=== PATIENT | male | born 1935 | race Hispanic/Latino ===

== ENCOUNTER 2021-06-19 06:00 | Day surgery (SDC) | payer MEDICARE ==
[2021-06-17 12:41] LABS: BASOPHILS % (AUTO) 0.8 % (0.0-5.0); EOSINOPHILS % (AUTO) 4.1 % (0.0-8.0); HEMATOCRIT 33.6 % (42-54); LYMPHOCYTES % (AUTO) 15.4 % (21.0-51.0); MEAN CORPUSCULAR HEMOGLOBIN 23.6 pg (27.0-33.0); MEAN CORPUSCULAR HGB CONC 28.9 g/dL (32.0-36.0); MEAN CORPUSCULAR VOLUME 81.8 fL (79-99); MONOCYTES % (AUTO) 7.7 % (3.0-13.0); PLATELET COUNT (AUTO) 241 K/uL (130-400); RED BLOOD CELL COUNT(AUTO) 4.11 MIL/uL (4.50-6.20); RED CELL DISTRIBUTION WIDTH 16.3 % (11.0-15.5); WHITE BLOOD COUNT (AUTO) 7.2 K/uL (4.8-10.8)
[2021-06-17 12:51] LABS: CREATININE 1.3 mg/dL (0.5-1.5); POTASSIUM 4.6 mmol/L (3.5-5.1)
[~2021-06-19] VITALS: Ht 170.2 cm; Wt 68.9 kg
[~2021-06-19 06:00] MED LIST: AMIO200T68 PO; APIX5TAB PO; ATOR10TA69 PO; BUSP15TA3 PO; CARV25TA PO; EMPA10TA PO; FAMO20TA8 PO; FERR-82 PO; FURO20TA4 PO; GABA300C PO; LINA5TAB PO; LOSA50TA64 PO; NITR0.4T50 SL; ROPI2TAB7 PO; TAMS-1 PO
[2021-06-19 06:03] VITALS: BP 172/71
[2021-06-19] MEDS ORDERED: BUPIVACAINE/PF 0.25% 30ML VIAL IJ ONE (07:06)
[2021-06-19] MEDS ORDERED: LIDOCAINE HCL 1% MDV 50ML VIAL ONE (07:07)
[2021-06-19 07:11] LABS: INR 1.06 (0.85-1.15); PROTHROMBIN TIME 11.5 SEC (9.6-11.6)
[2021-06-19] MEDS ORDERED: CEFAZOLIN SODIUM 1 GM VIAL IVP ONE (08:00)
[2021-06-19] MEDS ORDERED: 0.9%NACL 1000ML 1,000 ML IV SCH (08:00)
== END 2021-06-19 08:45 | disposition home or self-care (01) ==
LOC: DAH 06:00
PROVIDERS: ATTEND Internal Medicine Cardiovascular Disease
DX: Z45.02 Encounter for adjustment and management of automatic implantable cardiac defibrillator (principal); I50.22 Chronic systolic (congestive) heart failure; I48.4 Atypical atrial flutter; I25.5 Ischemic cardiomyopathy; Z79.01 Long term (current) use of anticoagulants; Z53.8 Procedure and treatment not carried out for other reasons; Z79.899 Other long term (current) drug therapy
CPT/HCPCS: 36415 ×2; 80048; 82948; 85025; 85610; 93005; A4215; A4216; A4221; A4222; A4223 ×3; A4606; A4663; J3490; J0690

== ENCOUNTER 2021-08-14 05:45 | Day surgery (SDC) | payer MEDICARE ==
[2021-08-12 09:10] VITALS: BP 141/78
[2021-08-12 09:12] LABS: BASOPHILS % (AUTO) 0.6 % (0.0-5.0); HEMATOCRIT 39.1 % (42-54); LYMPHOCYTES % (AUTO) 18.1 % (21.0-51.0); MEAN CORPUSCULAR HEMOGLOBIN 23.6 pg (27.0-33.0); MEAN CORPUSCULAR HGB CONC 28.9 g/dL (32.0-36.0); MEAN CORPUSCULAR VOLUME 81.6 fL (79-99); MONOCYTES % (AUTO) 8.6 % (3.0-13.0); PLATELET COUNT (AUTO) 145 K/uL (130-400); RED BLOOD CELL COUNT(AUTO) 4.79 MIL/uL (4.50-6.20); WHITE BLOOD COUNT (AUTO) 5.4 K/uL (4.8-10.8)
[2021-08-12 09:26] LABS: INR 1.07 (0.85-1.15); PROTHROMBIN TIME 11.6 SEC (9.6-11.6)
[2021-08-12 09:27] LABS: PARTIAL THROMBOPLASTIN TIME 32.4 SEC (26.3-35.5)
[2021-08-12 09:31] LABS: CREATININE 1.3 mg/dL (0.5-1.5); POTASSIUM 5.2 mmol/L (3.5-5.1)
[2021-08-14] VITALS (8 sets, daily range): BP systolic 113–139; BP diastolic 64–82
[~2021-08-14] VITALS: Ht 162.6 cm; Wt 62.5 kg
[~2021-08-14 05:45] MED LIST changes: +0.9%NACL 1000ML 1,000 ML IV SCH; +MIRT-22 PO; -NITR0.4T50 SL; +ROPI0.5T7 PO; -ROPI2TAB7 PO
[2021-08-14] MEDS ORDERED: CEFAZOLIN SODIUM 1 GM VIAL IVP SCH (06:00)
[2021-08-14] MEDS ORDERED: BUPIVACAINE/PF 0.25% 30ML VIAL IJ ONE (07:03)
[2021-08-14] MEDS ORDERED: LIDOCAINE HCL 1% MDV 50ML VIAL ONE (07:04)
[2021-08-14] MEDS ORDERED: VANCOMYCIN 1G/250ML KIT 0 ML IV ONE (07:04)
[2021-08-14] MEDS ORDERED: MEPERIDINE-PF 25 MG/ML SYG ONE (07:24)
[2021-08-14] MEDS ORDERED: MIDAZOLAM HCL 1 MG/ML 2ML VIAL ONE (07:24)
[2021-08-14] MEDS ORDERED: FENTANYL CITRATE PF 50 MCG/1 ML 2ML VIAL ONE (07:24)
[2021-08-14] MEDS ORDERED: TRAM50TA4 PO (09:22)
[2021-08-14] MEDS ORDERED: ACETAMINOPHEN WITH CODEINE 1 TAB TAB PO PRN (09:30)
== END 2021-08-14 12:13 | disposition home or self-care (01) ==
LOC: DAH 05:45
PROVIDERS: ATTEND Internal Medicine Cardiovascular Disease
DX: Z45.02 Encounter for adjustment and management of automatic implantable cardiac defibrillator (principal); I11.0 Hypertensive heart disease with heart failure; I25.5 Ischemic cardiomyopathy; I50.22 Chronic systolic (congestive) heart failure; I48.4 Atypical atrial flutter; I25.10 Atherosclerotic heart disease of native coronary artery without angina pectoris; E78.5 Hyperlipidemia, unspecified; E11.51 Type 2 diabetes mellitus with diabetic peripheral angiopathy without gangrene; E11.42 Type 2 diabetes mellitus with diabetic polyneuropathy; Z98.890 Other specified postprocedural states; Z90.49 Acquired absence of other specified parts of digestive tract; Z98.41 Cataract extraction status, right eye; Z98.42 Cataract extraction status, left eye; Z89.512 Acquired absence of left leg below knee; Z95.1 Presence of aortocoronary bypass graft; Z89.511 Acquired absence of right leg below knee; Z79.01 Long term (current) use of anticoagulants; Z79.899 Other long term (current) drug therapy
CPT/HCPCS: 33263; 36415; 80048; 82948; 85025; 85610; 85730; 93005; A4215; A4216; A4221; A4222; A4223 ×3; A4606; A4663; C1721; J0690 ×2; J2175; J2250; J3490 ×2; J7030; 33228; 99156; 99157; J3010; J3370

== ENCOUNTER 2021-08-20 02:57 | Observation (INO) | payer MEDICARE ==
[~2021-08-20] VITALS: Ht 165.1 cm; Wt 57.9 kg
[~2021-08-20 02:57] MED LIST changes: -0.9%NACL 1000ML 1,000 ML IV SCH; +TRAM50TA4 PO
[2021-08-20 03:31] LABS: BASOPHILS % (AUTO) 0.7 % (0.0-5.0); EOSINOPHILS % (AUTO) 4.5 % (0.0-8.0); HEMATOCRIT 37.6 % (42-54); LYMPHOCYTES % (AUTO) 19.2 % (21.0-51.0); MEAN CORPUSCULAR HEMOGLOBIN 23.6 pg (27.0-33.0); MEAN CORPUSCULAR HGB CONC 29.8 g/dL (32.0-36.0); MEAN CORPUSCULAR VOLUME 79.3 fL (79-99); MONOCYTES % (AUTO) 12.1 % (3.0-13.0); NEUTROPHILS % (AUTO) 62.8 % (40.0-77.0); PLATELET COUNT (AUTO) 193 K/uL (130-400); RED BLOOD CELL COUNT(AUTO) 4.74 MIL/uL (4.50-6.20); RED CELL DISTRIBUTION WIDTH 14.6 % (11.0-15.5); WHITE BLOOD COUNT (AUTO) 5.7 K/uL (4.8-10.8)
[2021-08-20 03:39] LABS: CREATININE 1.4 mg/dL (0.5-1.5); POTASSIUM 3.8 mmol/L (3.5-5.1)
[2021-08-20 03:43] LABS: ALBUMIN 3.2 g/dL (3.5-5.0); BILIRUBIN,TOTAL 0.4 mg/dL (0.2-1.0); MAGNESIUM 2.1 mg/dL (1.80-2.40); TOTAL PROTEIN, SERUM 7.6 g/dL (6.0-8.3)
[2021-08-20 03:53] LABS: B-TYPE NATRIURETIC PEPTIDE 135 pg/mL (0-100)
[2021-08-20 04:08] LABS: APPEARANCE,URINE Clear (CLEAR); BILIRUBIN,URINE Negative (NEGATIVE); COLOR,URINE Yellow (YELLOW); GLUCOSE, URINE (UA) >=1000 mg/dL (NEGATIVE); KETONES,URINE Negative (NEGATIVE); LEUKOCYTE ESTERASE ,URINE Trace (NEGATIVE); NITRATE,URINE Negative (NEGATIVE); OCCULT BLOOD,URINE Negative (NEGATIVE); PROTEIN,URINE Negative (NEGATIVE); UROBILINOGEN,URINE 0.2 mg/dL (0.2-1.0)
[2021-08-20 04:31] LABS: BACTERIA,URINE Moderate /HPF (None Seen); RBC,URINE 0-1 /HPF (0-1); SQUAMOUS EPITHELIAL CELL,UR 0-2 /HPF (0-2)
[2021-08-20] MEDS ORDERED: IOHEXOL-350 75 ML VIAL IV ONE (06:13)
[2021-08-20] MEDS ORDERED: ACETAMINOPHEN 325 MG TAB PO PRN ×3 (07:30→14:00)
[2021-08-20] MEDS ORDERED: ONDANSETRON 4MG INJ IVP PRN (07:30)
[2021-08-20 08:50] VITALS: BP 164/101
[2021-08-20] MEDS ORDERED: NITR0.4T SL (09:18)
[2021-08-20 12:01] VITALS: BP 153/100
[2021-08-20] MEDS ORDERED: GABA300S PO (13:28)
[2021-08-20] MEDS ORDERED: ALBUTEROL 0.083% 2.5 MG/3 ML INH IH PRN (14:00)
[2021-08-20] MEDS ORDERED: KCL 20 MEQ ERTAB PO PRN (14:00)
[2021-08-20] MEDS ORDERED: POTASSIUM CHLORIDE 20MEQ/100ML 100 ML IV PRN ×2 (14:00)
[2021-08-20] MEDS ORDERED: ONDANSETRON 4MG INJ IV PRN (14:00)
[2021-08-20] MEDS ORDERED: GLUCAGON 1MG KIT 1 MG ML IM PRN (14:00)
[2021-08-20] MEDS ORDERED: NITROGLYCERIN 0.4 MG SL TAB SL PRN (14:00)
[2021-08-20] MEDS ORDERED: DiphenhydrAMINE HCL 50 MG/ML VIAL IV PRN (14:00)
[2021-08-20] MEDS ORDERED: LIDOCAINE HCL-MPF 1% 2ML VIAL IV PRN ×2 (14:00)
[2021-08-20] MEDS ORDERED: POTASSIUM CHLORIDE 10% ELIXIR 20 MEQ/15 ML UDCUP PO PRN (14:00)
[2021-08-20] MEDS ORDERED: DIPHENHYDRAMINE HCL 25 MG CAPSULE PO PRN (14:00)
[2021-08-20] MEDS ORDERED: LACTULOSE 20 GM/30 ML UDCUP PO PRN (14:00)
[2021-08-20] MEDS ORDERED: DEXTROSE 50%-WATER 50 ML DISP.SYRIN IV PRN (14:00)
[2021-08-20] MEDS ORDERED: MAG/ALUM/SIMETH 30 ML UDCUP PO PRN (14:00)
[2021-08-20 16:00] VITALS: BP 115/83
[2021-08-20] MEDS: INSULIN HUMULIN R 100 UNIT/ML 3ML SQ SCH ×2 (16:30→21:00)
[2021-08-20 20:00] VITALS: BP 118/77
[2021-08-20] MEDS ORDERED: GABAPENTIN 300 MG CAPSULE PO SCH (21:00)
[2021-08-20] MEDS ORDERED: TAMSULOSIN HCL 0.4 MG CAP.ER.24H PO SCH (21:00)
[2021-08-20] MEDS ORDERED: MIRTAZAPINE 15 MG TABLET PO SCH (21:00)
[2021-08-20] MEDS: BUSPIRONE HCL 5 MG TABLET PO SCH (21:38)
[2021-08-20] MEDS: FAMOTIDINE 20MG TAB PO SCH (21:38)
[2021-08-20] MEDS: CARVEDILOL 25 MG TABLET PO SCH (21:39)
[2021-08-20] MEDS: APIXABAN 5 MG TABLET PO SCH (21:39)
[2021-08-20 23:58] VITALS: BP 113/67
[2021-08-21 04:00] VITALS: BP 103/66
[2021-08-21] MEDS: INSULIN HUMULIN R 100 UNIT/ML 3ML SQ SCH ×2 (05:47→11:30)
[2021-08-21 08:08] VITALS: BP 136/85
[2021-08-21] MEDS ORDERED: **HM**JARDIANCE 10MG PO SCH (09:00)
[2021-08-21] MEDS ORDERED: ATORVASTATIN 10 MG TABLET PO SCH (09:00)
[2021-08-21] MEDS ORDERED: AMIODARONE 200 MG TABLET PO SCH (09:00)
[2021-08-21] MEDS ORDERED: FUROSEMIDE 20 MG TABLET PO SCH (09:00)
[2021-08-21] MEDS ORDERED: ENOXAPARIN SODIUM 30 MG/0.3 ML SQ SCH (09:00)
[2021-08-21] MEDS ORDERED: FERROUS SULFATE 325 MG TABLET.DR PO SCH (09:00)
[2021-08-21] MEDS ORDERED: LOSARTAN 50 MG TABLET PO SCH (09:00)
[2021-08-21] MEDS ORDERED: LINAGLIPTIN 5 MG TABLET PO SCH (09:00)
[2021-08-21] MEDS: CARVEDILOL 25 MG TABLET PO SCH (09:30)
[2021-08-21] MEDS: BUSPIRONE HCL 5 MG TABLET PO SCH (09:31)
[2021-08-21] MEDS: APIXABAN 5 MG TABLET PO SCH (09:31)
[2021-08-21] MEDS: FAMOTIDINE 20MG TAB PO SCH (09:32)
[2021-08-21 11:40] VITALS: BP 116/81
== END 2021-08-21 15:40 | disposition home or self-care (01) ==
LOC: EDH 02:57 → INTOOBSV 07:24 → EDHIP 07:24 → 3AH 08:46
PROVIDERS: ADMIT Internal Medicine; ATTEND Internal Medicine
DX: R06.02 Shortness of breath (principal); R06.01 Orthopnea; E78.2 Mixed hyperlipidemia; I25.10 Atherosclerotic heart disease of native coronary artery without angina pectoris; I70.1 Atherosclerosis of renal artery; I13.0 Hypertensive heart and chronic kidney disease with heart failure and stage 1 through stage 4 chronic kidney disease, or unspecified chronic kidney disease; E11.22 Type 2 diabetes mellitus with diabetic chronic kidney disease; I50.32 Chronic diastolic (congestive) heart failure; N18.30 Chronic kidney disease, stage 3 unspecified; G10 Huntington's disease; E11.42 Type 2 diabetes mellitus with diabetic polyneuropathy; E11.51 Type 2 diabetes mellitus with diabetic peripheral angiopathy without gangrene; I48.19 Other persistent atrial fibrillation; I25.5 Ischemic cardiomyopathy; I08.1 Rheumatic disorders of both mitral and tricuspid valves; E78.5 Hyperlipidemia, unspecified; E78.00 Pure hypercholesterolemia, unspecified; D68.69 Other thrombophilia; I48.92 Unspecified atrial flutter; Z79.01 Long term (current) use of anticoagulants; Z79.84 Long term (current) use of oral hypoglycemic drugs; Z79.899 Other long term (current) drug therapy; Z87.891 Personal history of nicotine dependence; Z89.511 Acquired absence of right leg below knee; Z89.512 Acquired absence of left leg below knee; Z90.49 Acquired absence of other specified parts of digestive tract; Z95.1 Presence of aortocoronary bypass graft; Z95.810 Presence of automatic (implantable) cardiac defibrillator; Z98.42 Cataract extraction status, left eye
CPT/HCPCS: 36415; 71045; 71270; 80053; 81001; 82550 ×4; 82948 ×5; 83735; 83874 ×3; 83880; 84484 ×4; 85025; 85378; 87077; 87088; 87186; 93005; 93306; 93356; 99285; G0378 ×6; Q9967

== ENCOUNTER → 2022-03-13 | Outpatient (CLI) | payer MEDICARE ==
[~2022-03-13] MED LIST changes: +ATOR10 PO; +NITR0.4T SL; -TRAM50TA4 PO
== END | disposition home or self-care (01) ==
LOC: RAH 09:40
PROVIDERS: ATTEND Internal Medicine
DX: K42.9 Umbilical hernia without obstruction or gangrene (principal); K57.30 Diverticulosis of large intestine without perforation or abscess without bleeding; M47.814 Spondylosis without myelopathy or radiculopathy, thoracic region; K59.00 Constipation, unspecified; I95.9 Hypotension, unspecified; Z90.49 Acquired absence of other specified parts of digestive tract
CPT/HCPCS: 74150